=== PATIENT | female | born 1955 | race Caucasian/White ===

== ENCOUNTER 2020-12-16 14:18 | Inpatient (IN) | payer OTHER, MEDICARE ==
[~2020-12-16] VITALS: Ht 157.5 cm; Wt 67.6 kg
[2020-12-16 14:29] VITALS: BP 121/47
--- NOTE | 2020-12-16 15:53 | EKG ---
[address] [place] [address] ELECTROCARDIOGRAM REPORT Name: ANITAOLGA Felix [id number] Admission: 12/16/20 Attend Phys: Discharge: Date of : 51 Report #: [id number] [facility] ED Test Date: 2020-12-16 Test Time: 14:49:00 Pat Name: OLGA HOWARD Department: Room: Gender: F Higher Level Teaching Assistant: BANDAR : 1955 Requested By: Libertad Torres Order Number: [id number] MD: Adal Dorman Measurements Intervals Maribel Rate: 71 P: 62 KS: 212 QRS: 267 QRSD: 121 T: 87 QT: 419 QTc: 456 Interpretive Statements Sinus rhythm Borderline prolonged KS interval Nonspecific IVCD with LAD No previous ECG available for comparison Electronically Signed On 12-16-2020 15:53:11 CDT by Adal Dorman [email or web address] <ELECTRONICALLY SIGNED> By: Adal Dorman MD, [facility] 12/16/20 1553 1449 1449 Adal Dorman MD, FACC /EPI
[2020-12-16 15:59] LABS: ABSOLUTE NEUTROPHILS 6.1 thou/uL (1.4-8.2); BASOPHILS 0.4 % (0.0-2.0); HEMOGLOBIN 9.6 gm/dL (12.0-15.0); LYMPHOCYTES 6.7 % (24.0-44.0); MCH 32.6 pg (26.0-34.0); MCV 101.9 fL (80.0-100.0); MONOCYTES 8.2 % (1.0-8.0); PLATELET COUNT 164 thou/uL (150-400); POLYS 84.7 % (36.0-66.0); RBC 2.94 mil/uL (4.20-5.00); RDW 18.1 % (10.5-14.5); WBC 7.2 thou/uL (4.0-11.0)
[2020-12-16 16:04] LABS: CALCIUM 7.9 mg/dL (8.5-10.1); CREATININE 2.1 mg/dL (0.6-1.0); POTASSIUM 3.3 mmol/L (3.5-5.1)
[2020-12-16 16:14] LABS: ALBUMIN 2.3 g/dL (3.4-5.0); DIRECT BILIRUBIN 0.9 mg/dL (<0.1-0.2); TOTAL BILIRUBIN 1.1 mg/dL (0.2-1.0); TOTAL PROTEIN 5.3 g/dL (6.4-8.2)
[2020-12-16 16:16] LABS: TROPONIN-I 0.79 ng/mL (<0.06)
[2020-12-16 17:35] LABS: URINE BILIRUBIN NEGATIVE (Negative); URINE BLOOD 2+ (Negative); URINE COLOR YELLOW; URINE GLUCOSE-RANDOM* NEGATIVE (Negative); URINE KETONES TRACE (Negative); URINE NITRITE-REFLEX NEGATIVE (Negative); URINE PROTEIN (DIPSTICK) 2+ (Negative); URINE UROBILINOGEN 0.2 E.U./dl (0.2-1.0)
[2020-12-16 17:36] LABS: URINE CLARITY CLOUDY; URINE LEUKOCYTES-REFLEX 3+ (Negative)
[2020-12-16 17:39] LABS: SQUAMOUS 4-10 Moderate /LPF (0-3); URINE RBC 1-2 Rare /HPF (NONE SEEN); URINE WBC-REFLEX >25 Many /HPF (0-5)
[2020-12-16 17:40] LABS: BACTERIA-REFLEX >30 Many /HPF (None Seen); CRYSTALS None Seen /LPF (None Seen)
[2020-12-16 20:23] VITALS: BP 137/40
[2020-12-16 21:10] VITALS: BP 139/40
[2020-12-16 21:44] VITALS: BP 152/60
[2020-12-17 04:45] VITALS: BP 143/58
--- NOTE | 2020-12-17 04:45 | NUR ---
ADMIT NOTE . RECIEVED PT VIA GURNEY FROM ED UPON ARRIVAL TO UNIT PT ALERT TO SELF AND SITUATION BUT NOTED TO BE FORGETFUL AT TIMES , NOTED LARGE BRUUISE AT NEW RIGHT UPPER ARM AV FISTUAL SITE. RIGHT CHEST DIAYLSIS CATH INTACT. COCCYX OPEN WOUND NOTED PICTURE TAKEN AND MEDIPLEX DRESSING APPLIED. LEFT CHEST SL NOTED. DATA BASE COMPLETED. YELLOW ARM BAND , SLIPPERS AND BED ALARM ON FOR SAFETY. IGNITE PRISON CALLED TO GET MEDICATION LIST FAX TO UNIT , TALKED WITH NURSE MISS MCKEON AT 0430 , WAITING FOR FAX. PT C/O BACK PAIN PT REPOSITONED AND TYLENOL GIVEN.
[2020-12-17 04:58] LABS: HEMATOCRIT 27.6 % (37.0-47.0); HEMOGLOBIN 8.9 gm/dL (12.0-15.0); MCH 32.6 pg (26.0-34.0); MCHC 32.2 g/dL (28.0-37.0); RBC 2.73 mil/uL (4.20-5.00); RDW 19.2 % (10.5-14.5)
[2020-12-17] MEDS ORDERED: LEVO-T75 MCG PO (05:19)
[2020-12-17] MEDS ORDERED: FENOFIBRATE160 MG PO (05:19)
[2020-12-17 05:20] LABS: CALCIUM 7.7 mg/dL (8.5-10.1); CREATININE 2.8 mg/dL (0.6-1.0); POTASSIUM 3.6 mmol/L (3.5-5.1)
[2020-12-17] MEDS ORDERED: ZOFRAN4 MG PO (05:20)
[2020-12-17] MEDS ORDERED: REGLAN 5 MG TAB5 MG PO (05:21)
[2020-12-17] MEDS ORDERED: RENAL-VITE TAB0.8 MG PO (05:21)
[2020-12-17] MEDS ORDERED: SENNA PLUS TAB1 EACH PO (05:22)
[2020-12-17] MEDS ORDERED: TRAMADOL 50 MG50 MG PO (05:22)
[2020-12-17] MEDS ORDERED: AMIODARONE HCL400 MG PO ×2 (05:23→05:24)
[2020-12-17] MEDS ORDERED: VITAMIN C500 M2 PO (05:25)
[2020-12-17] MEDS ORDERED: LIPITOR40 MG PO (05:25)
[2020-12-17] MEDS ORDERED: CARVEDILOL12.5 MG PO (05:26)
[2020-12-17] MEDS ORDERED: COLACE100 MG PO (05:26)
[2020-12-17 07:05] VITALS: BP 144/62
--- NOTE | 2020-12-17 10:03 | EKG ---
[address] [place] [address] ELECTROCARDIOGRAM REPORT Name: OLGA HOWARD Room #: 210-P ADM IN M.R.#: [id number] Admission: 12/16/20 Attend Phys: Balaji Dillon MD Discharge: Date of : 51 Report #: [id number] [facility] Test Date: 2020-12-17 Test Time: 08:40:26 Pat Name: OLGA HOWARD Department: Room: 210 P Gender: F Quality Assurance Manager: TRACE : 1955 Requested By: Yanci Pace Order Number: [id number] MD: Adal Dorman Measurements Intervals [place] Rate: 75 P: 71 AL: 217 QRS: 249 QRSD: 124 T: 74 QT: 403 QTc: 451 Interpretive Statements Sinus rhythm Borderline prolonged AL interval Nonspecific IVCD with LAD Abnormal lateral Q waves vs. lead placement Anterior infarct, old Compared to ECG 12/16/2020 14:49:00 Q waves now present Myocardial infarct finding now present Electronically Signed On 12-17-2020 10:03:43 CDT by Adal Dorman [email or web address] <ELECTRONICALLY SIGNED> By: Adal Dorman MD, FACC 12/17/20 1003 0840 Adal Dorman MD, [facility] /EPI
[2020-12-17 11:00] VITALS: BP 114/53
--- NOTE | 2020-12-17 12:35 | 2DMMODE ---
[facility] [place] [address] [place] [address] 2 D/M-MODE ECHOCARDIOGRAM Name: OLGA HOWARD Room #: 210-P ADM IN M.R.#: [id number] Admission: 12/16/20 Attend Phys: Balaji Dillon MD Discharge: Date of : 51 Report #: [id number] THIS REPORT FOR: cc: Chip Conde MD, Christopher B. MD Park, Jin S. MD ~ APPROVED REPORT Study performed: 12/17/2020 11:28:26 EXAM: Comprehensive 2D, Doppler, and color-flow Echocardiogram Patient Location: Bedside Room #: 210 Status: routine BSA: 1.69 HR: 71 bpm BP: 114/53 mmHg Rhythm: NSR Other Information Study Quality: Good Indications Short of breath, elevated troponin. Hx: Cardiomyopathy, CHF, Afib, AICD, COPD, HTN, HLP, ESRD. 2D Dimensions RVDd: 37.00 mm IVSd: 12.00 (7-11mm) LVOT Diam: 21.00 (18-24mm) LVDd: 65.00 mm PWd: 12.00 (7-11mm) Ascending Ao: 32.00 (22-36mm) LVDs: 56.00 (25-40mm) Left Atrium: 52.00 (27-40mm) Aortic Root: 34.00 mm Volumes Left Atrial Volume (Systole) Single Plane 4CH: 105.56 mL Single Plane 2CH: 105.97 mL LA ESV Index: 66.00 mL/m2 Aortic Valve AoV Peak Redd.: 2.46 m/s AO Peak Gr.: 24.24 mmHg LVOT Max P.54 mmHg AO Mean Gr.: 12.57 mmHg [facility] [address] [place] [address] 2 D/M-MODE ECHOCARDIOGRAM Name: OLGA HOWARD Room #: 210-[facility] IN [facility].#: [id number] Admission: 12/16/20 Attend Phys: Balaji Dillon MD Discharge: Date of : 51 Report #: [id number] AO V2 Mean: 1.68 m/s LVOT Max V: 1.28 m/s AO V2 VTI: 43.60 cm ILEANA Vmax: 1.74 cm2 Mitral Valve E/A Ratio: 1.5 MV Decel. Time: 207.05 ms MV E Max Redd.: 1.73 m/s MV A Redd.: 1.16 m/s MV PHT: 60.04 ms Pulmonary Valve PV Peak Redd.: 1.17 m/s PV Peak Gr.: 5.49 mmHg Pulmonary Vein P Vein S: 0.85 m/s P Vein D: 0.78 m/s P Vein S/D Ratio: 1.09 Tricuspid Valve TR Peak Redd.: 3.24 m/s RAP Estimate: 10.00 mmHg TR Peak Gr.: 42.08 mmHg PA Pressure: 52.00 mmHg Left Ventricle Left ventricle is moderately dilated. Paradoxical septal motion consistent with paced rhythm. Mild concentric left ventricular hypertrophy. Left ventricular systolic function is moderate to severely decreased. LVEF is 30-35%. Moderate diastolic dysfunction is present (pseudonormal filling). Right Ventricle The right ventricle is normal size. Device lead is present in the right ventricle. Atria Left atrium is severely dilated. Right atrium is mildly dilated. Aortic Valve Aortic valve is mildly calcified. Mild to moderate aortic regurgitation. There is mild valvular aortic stenosis. Calculated aortic valve area is 1.7 cm2 with maximum pressure gradient of 24 mmHg and mean pressure gradient of 13 mmHg. Mitral Valve [facility] [address] [id number] 2 D/M-MODE ECHOCARDIOGRAM Name: ANITAOLGA Felix Room #: 210-P [facility] IN [facility].#: [id number] Admission: 12/16/20 Attend Phys: Balaji Dillon MD Discharge: Date of : 51 Report #: [id number] Mitral valve leaflets are mildly thickened. Moderate mitral annular calcification. Severe eccentric mitral regurgitation. No evidence of mitral valve stenosis. Tricuspid Valve The tricuspid valve is normal in structure. Mild tricuspid regurgitation. Estimated PAP is 50mmHg. Pulmonic Valve The pulmonary valve is normal in structure. Mild pulmonic regurgitation. Great Vessels The aortic root is normal in size. The ascending aorta is normal in size. IVC is normal in size and collapses <50% with inspiration. Pericardium There is no pericardial effusion. Left pleural effusion noted. <Conclusion> Left ventricle is moderately dilated. Left ventricular systolic function is moderate to severely decreased. Moderate diastolic dysfunction is present (pseudonormal filling). The right ventricle is normal size. Device lead is present in the right ventricle. Left atrium is severely dilated. There is mild valvular aortic stenosis. Mild to moderate aortic regurgitation. Severe eccentric mitral regurgitation. Mild tricuspid regurgitation. Estimated PAP is 50mmHg. <ELECTRONICALLY SIGNED> By: Shalom Gibson MD 12/17/20 1235 1235 1235 Shalom Gibson MD /INF
--- NOTE | 2020-12-17 13:59 | NUR ---
ASSESSMENT: CM REVIEWED CHART AND MET WITH PATIENT AND HER AT THE BEDSIDE. PT WAS ADMITTED FROM [facility] LOCATION DUE TO ELEVATED TROPONIN, ELADIA, CONFUSION. PT REPORTS SHE HAS BEEN AT [facility] FOR A FEW WEEKS. PT REPORTS SHE HAS BEEN WEAK THERE AND USING A WALKER. PT IS A DIALYSIS PATIENT AND RECEIVING DIALYSIS W. PRIOR TO BEING AT [facility] PT REPORTS SHE WAS GOING TO [facility] WITH CHAIR TIME OF 1000. PTS IS AT THE BEDSIDE AND PLANS ARE FOR PATIENT TO RETURN TO [facility] ONCE MEDICALLY STABLE TO DO SO. CM UPDATED ELEUTERIO JOHNSON FROM [facility] WELL FAXED CLINICAL TO FACILITY. PT IS CURRENTLY ON 3L OXYGEN AND REPORTS SHE WAS NOT ON IT AT [facility] PRIOR. CM WILL CONTINUE TO FOLLOW TO ASSIST NEEDED.
[2020-12-17 15:15] VITALS: BP 101/51
--- NOTE | 2020-12-17 20:03 | NUR ---
Patient refused to walk, but got up on the feet. with 2 assist, patient got back to bed. patient was encouraged to have more activity.
[2020-12-17 21:00] VITALS: BP 107/36
[2020-12-18 04:18] LABS: HEMOGLOBIN 8.8 gm/dL (12.0-15.0); MCH 32.7 pg (26.0-34.0); MCHC 32.5 g/dL (28.0-37.0); MCV 100.6 fL (80.0-100.0); RBC 2.68 mil/uL (4.20-5.00); RDW 18.5 % (10.5-14.5); WBC 5.5 thou/uL (4.0-11.0)
[2020-12-18 04:20] LABS: CALCIUM 7.8 mg/dL (8.5-10.1); CREATININE 3.7 mg/dL (0.6-1.0); POTASSIUM 3.5 mmol/L (3.5-5.1)
[2020-12-18 04:45] VITALS: BP 113/50
--- NOTE | 2020-12-18 07:35 | HC ---
[facility] [place] [place] [address] CONSULTATION Name: OLGA HOWARD Room #: 210-P [facility] IN M.R.#: [id number] Admission: 12/16/20 Attend Phys: Balaji Dillon MD Discharge: Date of : 51 Report #: [id number] THIS REPORT FOR: cc: Chip Conde MD, Christopher B. MD Al-Absi,Radha Wasserman MD ~ DOC #: [id number] Radha Walker MD REASON FOR THE CONSULTATION: End-stage renal disease. REASON FOR THE PRESENTATION: Hallucination on exertion. HISTORY OF PRESENT ILLNESS: A 65-year-old with history of end-stage renal disease, maintained on hemodialysis every Wednesday, Wednesday and Wednesday. She reported to the Emergency Room yesterday concerned about her visual hallucination. This happened after dialysis. She felt exhausted. She denies any nausea or vomiting. She denies any previous similar episodes. She was found to have hypoxemia and required oxygen supplementation. She was admitted to further evaluate her presenting complaint. She is known to have severe cardiomyopathy with an ejection fraction of around 20% and was initiated on dialysis a few months ago. PAST MEDICAL HISTORY: 1. Cardiomyopathy. 2. End-stage renal disease, maintained on hemodialysis. 3. Detached retina surgery on the left eye. 4. Bilateral tubal ligation. ALLERGIES: None. MEDICATIONS: 1. Atorvastatin. 2. Fenofibrate. 3. Carvedilol. 4. Levothyroxine. 5. Folic acid. 6. Amiodarone. FAMILY HISTORY: Significant for hypertension. REVIEW OF SYSTEMS: GENERAL: Significant for weakness. CARDIOVASCULAR: No chest pain or palpitation. PULMONARY: No cough, hemoptysis. GASTROINTESTINAL: No nausea or vomiting. [facility] [address] [place] [address] CONSULTATION Name: OLGA HOWARD Felix Room #: 210-P [facility] IN ..#: [id number] Admission: 12/16/20 Attend Phys: Balaji Dillon MD Discharge: Date of : 51 Report #: [id number] GENITOURINARY: No frequency, no urgency. NEUROLOGICAL: As per the history of present illness. PHYSICAL EXAMINATION: VITAL SIGNS: Temperature is 36.6, blood pressure is 143/58. Pulse rate is 77. HEAD AND NECK: No jugular venous distention, no bruit, no thyromegaly. CHEST: No crackles. There is a right-sided Tesio catheter. CARDIOVASCULAR: No rub detected. ABDOMEN: Soft, nontender. LOWER EXTREMITIES: No edema. LABORATORY VALUES: Hemoglobin is 8.9. Sodium is 137, potassium is 3.6. Troponin is mildly elevated to 0.7. AST is elevated at 88. ASSESSMENT, IMPRESSION, PLAN: 1. End-stage renal disease. 2. Exhaustion and hallucination. 3. Dirty looking urine. 4. History of cardiomyopathy with an ejection fractions of around 20%. 5. Continue with the usual hemodialysis every Wednesday, Wednesday, and Wednesday. 6. Investigate the underlying cause for her hallucination. 7. Follow cultures regarding her urine. 8. Resume outpatient heart related medications. 9. Avoid any medications that might exacerbate her hallucination. 10. We will continue to follow. Radha Walker MD AIA/JOSE <ELECTRONICALLY SIGNED> By: Radha Walker MD 12/18/20 0735 0517 0559 Radha Walker MD /nt
[2020-12-18 08:00] VITALS: BP 123/45
[2020-12-18 12:00] VITALS: BP 127/72
[2020-12-18] MEDS ORDERED: COREG6.25 MG PO (14:44)
[2020-12-18] MEDS ORDERED: TRAMADOL 50 MG50 MG PO (14:44)
--- NOTE | 2020-12-18 14:47 | NUR ---
BPCI letter and preferred network provided to patient chart, patient lives at [facility]
[2020-12-18] MEDS ORDERED: NYSTATIN1000000 UN TOP (14:51)
--- NOTE | 2020-12-18 15:15 | NUR ---
Patient to discharge today, return to [facility] for post acute care. Patient is dializing at this time. brand marketing coordinator reports dc plan can be at 1630. She reports dialysis likely completed at 1545. Chart copy requested. Faxed orders. Sp with Carolina at [facility] in admissions. Alerted of dc today and faxed orders. Alerted patient is now BPCI program. Faxed alert to [facility] patient BPCI. Updated patient on transport time. called spouse and alerted to him the time. no further needs.
[2020-12-18 15:30] VITALS: BP 131/61
--- NOTE | 2020-12-18 16:39 | NUR ---
ASSESSMENT CHARTED - MEDS PER SEP - NO CO'S OF PAIN OR NAUSEA. DEEPA DIET AND FLUIDS. PT HAD DIALYSIS THIS AFTERNOON. DEEPA WELL REMOVED 1.5 LITRES. VSS. PT TRANSFERED BACK TO [facility] THIS AFTERNOON. LEFT UNIT VIA WHEELCHAIR VAN. ATTEMNPTED TO CALL REPORT TO DAVID AND NO ANSWER WAS OBTAINED FROM THE NURSING STATION TO GET REPORT. NO CO'S AT TIME OF D/C.
== END 2020-12-18 16:40 | DRG 291 ==
LOC: ER 14:18 → 2N 17:26 → EROBS 17:26 → 2N 21:11
PROVIDERS: Emergency Medicine; ADMIT Hospitalist; ATTEND Hospitalist
PROC: 5A1D70Z Performance of Urinary Filtration, Intermittent, Less than 6 Hours Per Day (ICD-10-PCS; principal; 2020-12-18)
DX: I13.2 Hypertensive heart and chronic kidney disease with heart failure and with stage 5 chronic kidney disease, or end stage renal disease (principal); I50.31 Acute diastolic (congestive) heart failure; J96.01 Acute respiratory failure with hypoxia; G93.41 Metabolic encephalopathy; N18.6 End stage renal disease; N39.0 Urinary tract infection, site not specified; R44.3 Hallucinations, unspecified; I42.9 Cardiomyopathy, unspecified; R77.8 Other specified abnormalities of plasma proteins; E78.5 Hyperlipidemia, unspecified; E03.9 Hypothyroidism, unspecified; I25.10 Atherosclerotic heart disease of native coronary artery without angina pectoris; K21.9 Gastro-esophageal reflux disease without esophagitis; D64.9 Anemia, unspecified; I48.91 Unspecified atrial fibrillation; I08.3 Combined rheumatic disorders of mitral, aortic and tricuspid valves; Z98.42 Cataract extraction status, left eye; Z95.810 Presence of automatic (implantable) cardiac defibrillator; Z79.899 Other long term (current) drug therapy; Z99.2 Dependence on renal dialysis
CPT/HCPCS: 10081; 32100

== ENCOUNTER → 2020-12-28 | Emergency (ER) | payer OTHER, MEDICARE ==
[~2020-12-28] VITALS: Ht 152.4 cm; Wt 62.6 kg
[~2020-12-28] MED LIST: AMIODARONE HCL400 MG PO; CARVEDILOL12.5 MG PO; COLACE100 MG PO; COREG6.25 MG PO; FENOFIBRATE160 MG PO; LEVO-T75 MCG PO; LIPITOR40 MG PO; NYSTATIN1000000 UN TOP; REGLAN 5 MG TAB5 MG PO; RENAL-VITE TAB0.8 MG PO; SENNA PLUS TAB1 EACH PO; TRAMADOL 50 MG50 MG PO; VITAMIN C500 M2 PO; ZOFRAN4 MG PO
[2020-12-28 21:11] LABS: BASOPHILS 1.1 % (0.0-2.0); EOSINOPHILS 1.9 % (0.0-3.0); LYMPHOCYTES 7.7 % (24.0-44.0); MCH 33.4 pg (26.0-34.0); MCHC 32.2 g/dL (28.0-37.0); MCV 103.6 fL (80.0-100.0); MONOCYTES 11.8 % (1.0-8.0); PLATELET COUNT 220 thou/uL (150-400); POLYS 77.5 % (36.0-66.0); RBC 2.41 mil/uL (4.20-5.00); RDW 18.7 % (10.5-14.5); WBC 6.4 thou/uL (4.0-11.0)
[2020-12-28 21:13] LABS: CALCIUM 7.8 mg/dL (8.5-10.1); CREATININE 3.7 mg/dL (0.6-1.0); POTASSIUM 4.3 mmol/L (3.5-5.1)
[2020-12-28 21:22] LABS: TROPONIN-I 0.08 ng/mL (<0.06)
[2020-12-29 01:07] VITALS: BP 132/78
--- NOTE | 2020-12-29 11:38 | EKG ---
[address] [address] [address] [facility] [place] [address] ELECTROCARDIOGRAM REPORT Name: OLGA HOWARD Room #: REG [facility]#: [id number] Admission: 12/28/20 Attend Phys: Discharge: Date of : 51 Report #: [id number] [facility] ED Test Date: 2020-12-28 Test Time: 21:08:16 Pat Name: OLGA HOWARD Department: Room: Gender: F Telecom Manager: siva : 1955 Requested By: Libertad Torres Order Number: [id number] MD: Mannie Jay Measurements Intervals [place] Rate: 71 P: 75 TX: 196 QRS: 257 QRSD: 116 T: 50 QT: 409 QTc: 445 Interpretive Statements Sinus rhythm Atrial premature complex Left anterior fascicular block Probable anterolateral infarct, old Compared to ECG 12/17/2020 08:40:26 Electronically Signed On 12-29-2020 11:37:58 CDT by Mannie Jay [email or web address] <ELECTRONICALLY SIGNED> By: Mannie Jay MD 12/29/20 1137 2108 07 Mannie Jay MD /PATRICIA
== END ==
LOC: ER 20:33
PROVIDERS: Emergency Medicine
DX: R06.00 Dyspnea, unspecified (principal); K21.9 Gastro-esophageal reflux disease without esophagitis; J44.9 Chronic obstructive pulmonary disease, unspecified; I25.2 Old myocardial infarction; I12.0 Hypertensive chronic kidney disease with stage 5 chronic kidney disease or end stage renal disease; N18.6 End stage renal disease; Z98.890 Other specified postprocedural states; Z99.2 Dependence on renal dialysis; Z79.899 Other long term (current) drug therapy